=== PATIENT | male | born 1995 | race Caucasian/White ===

== ENCOUNTER 2019-10-21 16:52 | Emergency (ER) | payer OTHER ==
[~2019-10-21] VITALS: Ht 190.5 cm; Wt 79.5 kg
[2019-10-21 16:57] VITALS: TEMP 98.2
[2019-10-21 17:34] LABS: BASO % 0.7 % (0.0-2.0); EOS # 0.1 (0.0-0.7); EOS % 1.7 % (0-4.0); GRAN # 2.9 (1.4-6.5); GRAN % 48.3 % (42.2-75.2); HEMATOCRIT 41.5 % (42.0-52.0); HEMOGLOBIN 14.2 g/dl (13.5-18.0); LYMPH # 2.4 (1.2-3.4); MEAN CELL VOLUME 92 fl (80.0-100.0); MEAN CORPUSCULAR HEMOGLOBIN 32 pg (27.0-31.0); MEAN CORPUSCULAR HGB CONC 34 g/dl (33.0-37.0); MEAN PLATELET VOLUME 10.2 fl (7.4-10.4); MONO # 0.5 (0.1-0.6); MONO % 8.1 % (1.7-9.3); PLATELET COUNT 246 K/mm3 (130-400); RED BLOOD COUNT 4.49 M/mm3 (4.20-5.60); REDCELL DISTRIBUTION WIDTH-CV 11.5 % (11.5-14.5)
[2019-10-21 17:40] LABS: PROTHROMBIN TIME 12.1 SECONDS (9.7-12.8)
[2019-10-21 17:43] LABS: CREATININE, serum 1.08 (0.66-1.25)
[2019-10-21 18:20] VITALS: BP 128/77; PULSE 81
== END 2019-10-21 18:20 | disposition home or self-care (01) ==
LOC: COL.ER 16:52
PROVIDERS: Emergency Medicine
DX: K60.2 Anal fissure, unspecified (principal)